=== PATIENT | female | born 1980 | race Caucasian/White ===

== ENCOUNTER → 2016-07-16 | Outpatient (CLI) | payer BC ==
[~2016-07-16] MED LIST: AMT50 PO; GABA1CAP5 PO; RXC5 PO
--- NOTE | 2016-07-16 17:06 | DIAGNOSTIC IMAGING REPORT ---
EXAMINATION: PELVIC ULTRASOUND (transabdominal and endovaginal scanning) CLINICAL HISTORY: FREQUENT/EXCESSIVE MENSTRUATION W/ IRREGULAR CYCLE COMPARISON STUDY: None FINDINGS: The uterus measured 8.6 x 5.3 x 4.1 cm.. The endometrial stripe measured 18 mm.. The right ovary measured 12 x 12 x 14 mm.. The left ovary measured 19 x 20 x 19 mm. There is a 1 cm follicle.. There is no ultrasonographic evidence of ovarian torsion. It should be noted that ovarian torsion can be present with normal Doppler ultrasonographic findings. There was no evidence of pathologic free pelvic fluid. IMPRESSION: 1. No myometrial masses identified 2. Thickened endometrium measuring 18 mm. Electronically signed by: [place] Yanes M.D. 07/16/2016 5:05 PM Dictated Date/Time: 07/16/2016 5:02 PM
== END | disposition home or self-care (01) ==
LOC: C.ULTR 16:05
PROVIDERS: ATTEND Family Medicine
DX: N92.1 Excessive and frequent menstruation with irregular cycle (principal)

== ENCOUNTER → 2017-06-24 | Outpatient (CLI) | payer BC ==
[~2017-06-24] MED LIST changes: +GABA-1220 PO; -GABA1CAP5 PO; +GLC/500 PO
[2017-06-24 10:05] LABS: HEMOGLOBIN A1C 6.8 % (4.5-5.6)
[2017-06-24 10:17] LABS: FOLLICLE STIMULAT HORMONE 6.24 IU/L; PROLACTIN 8.28 ng/mL
== END | disposition home or self-care (01) ==
LOC: C.LAB1850 08:13
PROVIDERS: ATTEND Obstetrics & Gynecology
DX: N91.5 Oligomenorrhea, unspecified (principal); E11.9 Type 2 diabetes mellitus without complications

== ENCOUNTER 2017-10-29 05:47 | Day surgery (SDC) | payer BC ==
[2017-10-15 13:17] VITALS: BMI 55.0
--- NOTE | 2017-10-15 13:45 | PAT Medication Instructions ---
Service Date Oct 15, 2017. Current Home Medication List Metformin Hcl (Glucophage), 500 MG PO BID Medication Instructions For Your Scheduled Surgery - Hold the following medications the morning of surgery: Metformin Hcl (Glucophage), 500 MG PO BID - Take the following medications as scheduled the night before surgery: Metformin Hcl (Glucophage), 500 MG PO BID If you have any questions please call us at [phone] or [phone] or [phone]
[2017-10-15 14:27] LABS: BASO % 0.1 %; BASO ABS # 0.01 K/uL (0-0.2); EOS % 1.8 %; EOS ABS # 0.13 K/uL (0-0.5); HEMATOCRIT 36.5 % (37-47); HEMOGLOBIN 11.8 g/dL (12.0-16.0); IG# 0.01 K/uL (0.00-0.02); LYMPH % 26.9 %; LYMPH ABS # 1.93 K/uL (1.2-3.4); MEAN CELL VOLUME 80.8 fL (80-100); MEAN CORPUSCULAR HEMOGLOBIN 26.1 pg (25-34); MEAN CORPUSCULAR HGB CONC 32.3 g/dl (32-36); MEAN PLATELET VOLUME 9.9 fL (7.4-10.4); MONO % 5.2 %; MONO ABS # 0.37 K/uL (0.11-0.59); NEUT % 65.9 %; NEUT ABS # 4.73 K/uL (1.4-6.5); PLATELET COUNT 251 K/uL (130-400); RED CELL DISTRIBUTION WIDTH CV 15.2 % (11.5-14.5); RED CELL DISTRIBUTION WIDTH SD 44.1 fL (36.4-46.3); WHITE BLOOD COUNT 7.18 K/uL (4.8-10.8)
[2017-10-15 15:34] LABS: CALCIUM 8.9 mg/dl (8.5-10.1); CREATININE 0.7 mg/dl (0.60-1.20); POTASSIUM 4.1 mmol/L (3.5-5.1)
[~2017-10-29] VITALS: Ht 162.6 cm; Wt 145.0 kg
[~2017-10-29 05:47] MED LIST changes: -AMT50 PO; -GABA-1220 PO; -RXC5 PO
[2017-10-29] MEDS ORDERED: LACTATED RINGER'S 1000ML 1,000 ML IV SCH ×2 (06:00→07:58)
[2017-10-29 06:21] VITALS: BP 144/72; PULSE 100; TEMP 36.9; O2SAT 97; Ht 162.6 cm; Wt 145.0 kg
--- NOTE | 2017-10-29 07:08 | History & Physical Bridge Note ---
H&P Re-Evaluation Bridge Note: I have examined the patient, reviewed the History & Physical and in the interval since the performance of the History & Physical I have noted the following changes of clinical significance: No changes noted
[2017-10-29] MEDS ORDERED: PROPOFOL IV EMULSION 10 MG/ML 20 ML VIAL ONE (07:11)
[2017-10-29] MEDS ORDERED: ONDANSETRON INJ 2 MG/ML 2 ML VIAL ONE (07:11)
[2017-10-29] MEDS ORDERED: LIDOCAINE HCL 2% 2 ML VIAL (20MG/ML) ONE (07:11)
[2017-10-29] MEDS ORDERED: DEXAMETHASONE SOD INJ 4 MG/ML VIAL ONE (07:11)
[2017-10-29] MEDS ORDERED: FENTANYL CITRATE INJ 50 MCG/1 ML 2 ML VIAL ONE (07:11)
[2017-10-29] MEDS ORDERED: MIDAZOLAM HCL 1 MG/ML 2ML VIAL ONE (07:11)
--- NOTE | 2017-10-29 07:58 | [facility] Post Operative Brief Note ---
Immediate Operative Summary Operative Date October 29, 2017. Pre-Operative Diagnosis Endometrial mass, thickened endometrium Post-Operative Diagnosis Endometrial mass, thickened endometrium Procedure(s) Performed Dilation and curettage, hysteroscopy, and polypectomy via myosure Surgeon Dr. Anna Quick MD Data Collector Surgeon(s) None Estimated Blood Loss 0ml Findings Consistent with Post-Op Diagnosis Fluids (cc crystalloids) 650cc, 0 deficit Specimens A. Polyp and endometrial currettings Drains None Anesthesia Type General Complication(s) none Disposition Disposition: Recovery Room / PACU
[2017-10-29] MEDS ORDERED: OXYCODONE/ACETAMINOPHEN 5-325 TAB PO PRN ×2 (08:00)
[2017-10-29] MEDS ORDERED: IBUPROFEN 200 MG TAB PO PRN (08:00)
[2017-10-29] MEDS ORDERED: MoRPHine SULFATE 4 MG/ML 1 ML CARP\\VIAL IV PRN (08:00)
[2017-10-29] MEDS ORDERED: ACETAMINOPHEN 650 MG SUPP PR PRN (08:00)
[2017-10-29] MEDS ORDERED: IBUPROFEN 600 MG TAB PO PRN (08:00)
[2017-10-29] MEDS ORDERED: MoRPHine SULFATE 2 MG/ML CARP IV PRN ×2 (08:00)
[2017-10-29] MEDS ORDERED: KETOROLAC TROMETHAMINE 30 MG/ML VIAL IV. PRN ×2 (08:00)
[2017-10-29] MEDS ORDERED: ACETAMINOPHEN 325 MG TAB PO PRN (08:00)
--- NOTE | 2017-10-29 08:00 | Discharge Instructions ---
Discharge Instructions Date of Service October 29, 2017. Visit Reason for Visit: Thickened Endometrium, Endometrial Mass Discharge Discharge Diagnosis / Problem: s/p D&C/hysteroscopy, removal of polyp Discharge Goals Goal(s): Specific goals Activity Recommendations Activity Limitations: per Instructions/Follow-up section Anesthesia . Post Anesthesia Instructions: If you have had General Anesthesia or IV Sedation: * Do not drive today. * Resume driving when surgeon permits. * Do not make important decisions or sign legal documents today. * Call surgeon for: 1. Temperature elevations greater than 101 degrees F. 2. Uncontrollable pain. 3. Excessive bleeding. 4. Persistent nausea and vomiting. 5. Medication intolerance (nausea, vomiting or rash). * For nausea and vomiting use only clear liquids such as: tea, soda, bouillon until nausea subsides, then gradually increase diet as tolerated. * If you have any concerns or questions, call your surgeon's office. If physician is unavailable and it is an emergency, call 911 or go to the nearest emergency room. . Instructions / Follow-Up Instructions / Follow-Up ACTIVITY RECOMMENDATIONS: * Avoid tampons, douching, hot tubs, pools, and intercourse until bleeding has stopped. * May shower as usual. * No strenuous activity for 24-48 hours. After 24-48 hours, you may do anything you feel like doing (driving and sports are okay). SPECIAL CARE INSTRUCTIONS: Special Diet: * Mild nausea may occur in the immediate post-operative period. * Take clear liquids such as tea, cola or bouillon until all nausea has subsided; you may then resume your normal diet. Special Care: * Light bleeding and vaginal spotting can last from a few days to 3-4 weeks. Call your doctor if bleeding becomes heavier than the heaviest part of your period. * Check your temperature twice a day for one week. If it goes above 100.4 degrees Fahrenheit (38.0 Celsius), notify your doctor. * Call your doctor's office for an appointment for 6 weeks after your surgery. FOLLOW-UP VISIT: Call your doctor's office for an appointment for 6 weeks after your surgery. Diet Recommendations Recommended Home Diet: no limitations, resume previous diet Procedures Procedures Performed: Dilation and curettage, hysteroscopy, and polypectomy via myosure Pending Studies Studies pending at discharge: no Medical Emergencies . Who to Call and When: Medical Emergencies: If at any time you feel your situation is an emergency, please call 911 immediately. . Non-Emergent Contact Non-Emergency issues call your: [employer] Commissioner . . "Provider Documentation" section prepared by Anna Quick. .
[2017-10-29] MEDS ORDERED: LARYING-O-JET KIT (LTA) ONE (08:02)
[2017-10-29] MEDS ORDERED: NEOSTIGMINE METHYLSULFATE 5 MG/5 ML SYR ONE (08:02)
[2017-10-29] MEDS ORDERED: GLYCOPYRROLATE INJ 0.2 MG/ML VIAL ONE (08:02)
[2017-10-29] MEDS ORDERED: ROCURONIUM BROMIDE 10 MG/ML 5 ML VIAL ONE (08:02)
[2017-10-29] MEDS ORDERED: ATROPINE SULFATE 0.1 MG/ML 5ML SYR IV PRN (08:45)
[2017-10-29] MEDS ORDERED: EpHEDrine SULFATE INJ 50 MG/ML AMP IV PRN (08:45)
[2017-10-29] MEDS ORDERED: MEPERIDINE HCL 25 MG/ML CARP IV PRN (08:45)
[2017-10-29] MEDS ORDERED: HYDROmorphone INJ 1 MG/ML SYR IV PRN (08:45)
[2017-10-29] MEDS ORDERED: FENTANYL CITRATE INJ 50 MCG/1 ML 2 ML VIAL IV PRN (08:45)
[2017-10-29] MEDS ORDERED: ONDANSETRON INJ 2 MG/ML 2 ML VIAL IV PRN (08:45)
[2017-10-29] MEDS ORDERED: LABETALOL HCL IV 5 MG/ML 20ML IV PRN (08:45)
--- NOTE | 2017-10-29 08:52 | OPERATIVE REPORT ---
DATE OF OPERATION: 10/29/2017 PREOPERATIVE DIAGNOSES: 1. Thickened endometrium. 2. Suspected endometrial mass. POSTOPERATIVE DIAGNOSES: 1. Thickened endometrium. 2. Endometrial mass. PROCEDURE: D and C, hysteroscopy with polypectomy via MyoSure. SURGEON: Anna Quick MD ANESTHESIA: General per endotracheal tube. ESTIMATED BLOOD LOSS: None. FLUIDS: 650 mL of IV fluid with a 0 mL deficit on hysteroscopy. INDICATIONS: The patient is a 37-year-old G0 who was undergoing an infertility workup and found to have thickened endometrium and an SIS consistent with possible mass. FINDINGS: Uterus sounded to 8-9 cm. The endometrium was normal in appearance except for 1-2 endometrial polyps emanating from the fundus and posterior wall of the uterus. Both tubal ostia were visualized and found to be normal. COMPLICATIONS: None. DRAINS: None. DISPOSITION: To recovery room in stable condition. PROCEDURE IN DETAIL: The patient was taken the operating room where she was identified verbally and by bracelet. She was placed in dorsal spine position where general anesthesia was induced without difficulty. She was placed in dorsal lithotomy position in [facility]-cane stirrups and prepped and draped in normal sterile fashion. Timeout was held identifying the correct patient, procedure, positioning, allergies, and she did not need preoperative antibiotics. The bladder was drained of no urine and an exam under anesthesia revealed a midline uterus, normal palpating cervix, the rest of the exam is limited by body habitus. A weighted speculum was placed in posterior vagina. The anterior lip of the cervix was grasped with an Allis. The uterus was sounded to 8-9 cm and dilated to a #25 Yue dilator. The MyoSure scope was introduced into the uterus with the above-noted findings. The MyoSure Reach was then placed through the MyoSure scope and the polypoid tissue was removed without difficulty. The MyoSure scope was then removed and curettage was done in 365 degrees and the procedure was thus terminated. All instruments removed from the vagina and hemostasis was noted to be excellent. All sponge, lap, and needle counts were correct x2. The patient tolerated the procedure well and was taken to the recovery room in stable condition. I attest to the content of the Intraoperative Record and any orders documented therein. Any exception s are noted below.
[2017-10-29 09:05] VITALS: BP 116/73; PULSE 62; TEMP 36.4; O2SAT 96
[2017-10-29 09:35] VITALS: BP 127/65; PULSE 62; TEMP 36.5; O2SAT 97
[2017-10-29 10:05] VITALS: BP 134/61; PULSE 71; TEMP 36.5; O2SAT 90; O2SAT 92
--- NOTE | 2017-10-29 10:34 | Anesthesiology Progress Note ---
Anesthesia Post Op Note Date & Time October 29, 2017 at 10:34 Vital Signs Pain Intensity: 0 Vital Signs Past 12 Hours Date Time Temp Pulse Resp B/P (MAP) Pulse Ox O2 Delivery O2 Flow Rate FiO2 10/29/17 09:35 36.5 62 18 127/65 97 Nasal Cannula 2 10/29/17 09:05 36.4 62 18 116/73 96 Nasal Cannula 2 10/29/17 08:50 36.3 67 16 135/75 96 Nasal Cannula 2 10/29/17 08:40 74 16 135/80 98 Nasal Cannula 2 10/29/17 08:30 74 16 142/83 99 Oxymask 10 10/29/17 08:20 70 18 162/92 99 Oxymask 10 10/29/17 08:12 36.6 80 18 147/107 99 Oxymask 10 10/29/17 06:21 36.9 100 16 144/72 (96) 97 Room Air Notes Mental Status: alert / awake / arousable, participated in evaluation Pt Amnestic to Procedure: Yes Nausea / Vomiting: adequately controlled Pain: adequately controlled Airway Patency, RR, SpO2: stable & adequate BP & HR: stable & adequate Hydration State: stable & adequate Anesthetic Complications: no major complications apparent
== END 2017-10-29 10:25 | disposition home or self-care (01) ==
LOC: C.ACU 05:47
PROVIDERS: ATTEND Obstetrics & Gynecology
DX: N84.0 Polyp of corpus uteri (principal); R93.8 Abnormal findings on diagnostic imaging of other specified body structures; E11.40 Type 2 diabetes mellitus with diabetic neuropathy, unspecified; E66.01 Morbid (severe) obesity due to excess calories; Z68.43 Body mass index [BMI] 50.0-59.9, adult; Z88.0 Allergy status to penicillin; Z88.1 Allergy status to other antibiotic agents; Z82.49 Family history of ischemic heart disease and other diseases of the circulatory system; Z83.3 Family history of diabetes mellitus

== ENCOUNTER 2019-04-16 18:10 | Observation (INO) ==
[2019-04-16] MEDS ORDERED: ACETAMINOPHEN 500 MG TAB PO STA (18:25)
[2019-04-16] MEDS ORDERED: SODIUM CHLORIDE 0.9% 1000ML 1,000 ML IV ONE (18:25)
[2019-04-16] MEDS ORDERED: CLINDAMYCIN 900 MG in DEXTROSE 5% 50 ML IV ONE (18:25)
[2019-04-16 18:59] LABS: Basophils # (auto) 0.01 K/uL (0-0.2); Basophils % (auto) 0.1 %; Eosinophils # (auto) 0.08 K/uL (0-0.5); Eosinophils % (auto) 0.6 %; Hematocrit (blood only) 38.4 % (37-47); Hemoglobin 12.9 g/dL (12.0-16.0); Immature Granulocytes # (auto) 0.03 K/uL (0.00-0.02); Immature Granulocytes % (auto) 0.2 %; Lymphocytes % (auto) 4.8 %; Mean Corpuscular Hemoglobin 27.7 pg (25-34); Mean Corpuscular Hgb Conc 33.6 g/dL (32-36); Mean Corpuscular Volume 82.4 fL (80-100); Mean Platelet Volume 9.7 fL (7.4-10.4); Monocytes # (auto) 0.51 K/uL (0.11-0.59); Monocytes % (auto) 3.5 %; Neutrophils # (auto) 13.17 K/uL (1.4-6.5); Neutrophils % (auto) 90.8 %; Platelet Count 223 K/uL (130-400); RDW Coefficient of Variation 14.9 % (11.5-14.5); RDW Standard Deviation 44.5 fL (36.4-46.3); Red Blood Count 4.66 M/uL (4.2-5.4)
[2019-04-16 19:09] LABS: Partial Thromboplastin Ratio 0.9; Partial Thromboplastin Time 25.6 Seconds (21.0-31.0); Prothrombin Time 10.3 Seconds (9.0-12.0)
[2019-04-16] MEDS ORDERED: VANCOMYCIN HCL MG in SODIUM CHLORIDE 0.9% 500 ML IV ONE (19:09)
[2019-04-16] MEDS ORDERED: VANCOMYCIN HCL 2,750 MG in SODIUM CHLORIDE 0.9% 500 ML IV ONE (19:09)
[2019-04-16] MEDS ORDERED: VANCOMYCIN CONSULT ACTIVE PRN ×2 (19:09→20:30)
[2019-04-16] MEDS ORDERED: LACTATED RINGER'S 1,000 ML IV ONE (19:09)
[2019-04-16 19:18] LABS: Albumin Level 4.1 gm/dl (3.4-5.0); BUN Creatinine Ratio 12.3 (10-20); Calcium 9.2 mg/dl (8.5-10.1); Creatinine Clr Calc Pharmacy 125.7 ml/min; Est GFR (African American) 97.3; Est GFR (Non-African American) 83.9; Potassium 3.7 mmol/L (3.5-5.1)
[2019-04-16 19:20] LABS: Albumin Globulin Ratio 1.1 (0.9-2); Bilirubin,Total 0.6 mg/dl (0.2-1); Globulin 3.8 gm/dl (2.5-4.0); Total Protein 7.9 gm/dl (6.4-8.2)
--- NOTE | 2019-04-16 19:21 | XRay Report ---
XR chest 1V portable CLINICAL HISTORY: Sepsis dyspnea COMPARISON STUDY: 08/20/2014 FINDINGS: The bones soft tissues and hemidiaphragms are normal. The cardiomediastinal silhouette is n ormal. The lungs are clear. The pulmonary vasculature is normal. IMPRESSION: Negative chest. The above report was generated using voice recognition software. It may contain grammatical, syntax or spelling errors. Electronically signed by: Chris Todd M.D. 04/16/2019 7:19 PM
--- NOTE | 2019-04-16 19:22 | XRay Report ---
XR tibia fibula LT 2V CLINICAL HISTORY: redness, ?infection pain. Edema. COMPARISON: None. DISCUSSION: Generalized soft tissue edema. Cortical margins are intact. No abnormal periosteal reacti on. No evidence for fracture or dislocation. IMPRESSION: Generalized soft tissue edema. No acute bony abnormality. The above report was generated using voice recognition software. It may contain grammatical, syntax or spelling errors. Electronically signed by: Chris Todd M.D. 04/16/2019 7:21 PM
--- NOTE | 2019-04-16 20:14 | History & Physical Report ---
Date of Service April 16, 2019 Assessment & Plan (1) Left leg cellulitis: Patient with acute onset redness/swelling/pain of her left lower extremity. Also with fevers/chills/nausea/vomiting. Presently 3/4 SIRS criteria with fever/tachycardia/leukocytosis. Mildly elevated POC lactate at 2.37. Patient is nontoxic in appearance. Upon exam of the leg no real concern for ascending/deeper soft tissue infection. Mild concern for DVT. Patient also with significant tachycardia and mildly low oxygen saturations with no pre- existing lung disease. -Follow blood cultures sent by ED -Vancomycin -Clindamycin 900 mg IV 3 times daily -Probiotic use daily -Tylenol as needed for pain and fever -Chris area of cellulitis daily to monitor for progression -IV fluidsLR at 125 mL/h x 2 L -We will check d-dimer and left lower extremity ultrasound for possible DVT Present on Admission?: Yes (2) Elevated blood pressure reading without diagnosis of hypertension: Patient with elevated blood pressure upon arrival, 156/78. She comments that while at [facility] her blood pressure was over 200. She follows routinely with her PCP and has never been given the diagnosis of hypertension. She does appear to be mildly anxious, pain and IV fluids may also be contributing to elevated blood pressure. -Continue to monitor BP during her stay -Will not initiate antihypertensive agents at this time Present on Admission?: Yes (3) Tachycardia: Patient with elevated heart rate 129 bpm. Regular, narrow complex on telemetry. Suspect sinus tachycardia in setting of acute infection -Check EKG -Telemetry monitoring -IV fluids as above -Pain and fever control F/E/N - LR at 125 mL/h x 2 L, monitor electrolytes and replete as needed. Heart healthy diet as tolerated Prophylaxispatient is low risk for DVT, Doppler as above. Codefull Dispositionobservation to medical floor telemetry monitoring Present on Admission?: Yes History of Present Illness Chief Complaint: Left lower extremity pain, redness, edema Primary Care Provider: Ana Nunez PA-C Anjelica Tafoya is a 39-year-old male with no significant past medical or surgical history presenting with acute edema, redness, pain in her left lower extremity. Also with fevers, chills and malaise. Nausea and nonbloody/nonbilious vomiting. Symptoms began today at 1400. She was seen at [facility] prior to the ER and was sent here. She denies trauma to the area. Has had cellulitis of the left lower extremity in the past, most recently in 2013, unprovoked. No history of DVT or PE. 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 No recent travel. On arrival she is found to be febrile at 38.9. Regular tachycardia 129 bpm. Blood pressure elevated at 156/78. She comments that her blood pressure was over [facility] at [facility]. Blood pressure has always been within the normal range during visits with her PCP. Respiratory rate of 20 saturating 92% on room air, 96% on 2 L. She comments that at [facility] her respiratory rate was as low as 89% on room air. Presently her pain is well controlled. Chills have resolved. No additional complaints at this time. Specifically, no chest pain, palpitations, shortness of breath, cough, wheeze, pleuritic pain. No abdominal pain, diarrhea, constipation. ER course: Acetaminophen 1000 mg p.o., clindamycin 900 mg IV, vancomycin 2750 mg IV, LR x1 L, normal saline x1 L Allergies Allergy/AdvReac Type Severity Reaction Status Date / Time Penicillins Allergy Severe THROAT Verified 04/16/19 18:45 SWELLS sulfamethoxazole Allergy Intermediate hives Verified 04/16/19 18:45 trimethoprim Allergy Intermediate hives Verified 04/16/19 18:45 Bactrim Allergy Unknown hives Verified 10/15/17 13:17 Home Medications Home Medications Medication Instructions Recorded Confirmed Type ibuprofen [Advil] 400 - 600 mg PO DIRECTED PRN 04/16/19 04/16/19 History metformin 500 mg PO QAM 04/16/19 04/16/19 History Past Med/Surg History Medical History Cellulitis Surgical History History of back surgery Family History Other Cancer Diabetes Hypertension Social History Preferred Language: [place]serratian Communication Ability: Effective marital status: Current Living Situation: Spouse Feels Safe at Home: Yes Smoking Status: Never smoker Hx Alcohol Use: No Hx Substance Use: No Review of Systems Review of Systems: All systems reviewed & are unremarkable except as noted in HPI & below Physical Exam Physical Exam: General: patient resting comfortably, NAD, non-toxic in appearance, AA&O x 4 Skin: warm, dry, intact HEENT: NC/AT, PERRL, EOMI, anicteric sclera, conjunctiva without injection, external ear normal to inspection and nontender, nares patent, moist mucus membranes, dentition intact, no oropharyngeal lesions, neck supple, trachea mid line, no LAD, no thyromegaly, no JVD Heart: +S1/S2, regular, tachycardic, no m/r/g Lungs: equal air entry bilaterally, no rales/rhonchi/wheezes Abd: +BS, soft, NT/ND, no masses/organomegaly/ascites Ext: warm, 2+ pulses in UE/LE bilaterally, no clubbing/cyanosis, warmth/redness/swelling of left lower extremity from the knee down, few scattered fluid-filled vesicles on lateral aspect of the leg. Skin is intact. Redness well demarcated, marked with a pen and dated. No posterior calf tenderness, no palpable cord, negative Homans sign. No crepitus/bulla/lymphangitic streaking Neuro: nonfocal, patient AA&O x 4, speech intact, no facial droop, moving all extremities on command with equal strength 5/5 Results & Data Vital Signs (Past 12 Hours) Vital Signs Temp Pulse Pulse Resp BP BP Pulse Ox 04/16/19 19:52 37.2 C 115 H 20 130/65 98 04/16/19 19:07 92 04/16/19 19:03 129 H 20 156/78 H 92 04/16/19 18:15 38.4 C H 137 H 20 164/81 H 94 Laboratory Results Lab Results 04/16/19 04/16/19 04/16/19 Range/Units 18:41 18:41 18:41 WBC 14.50 H (4.8-10.8) K/uL RBC 4.66 (4.2-5.4) M/uL Hgb 12.9 (12.0-16.0) g/dL Hct 38.4 (37-47) % MCV 82.4 (80-100) fL MCH 27.7 (25-34) pg MCHC 33.6 (32-36) g/dL RDW Std Deviation 44.5 (36.4-46.3) fL RDW Coeff of Deepak 14.9 H (11.5-14.5) % Plt Count 223 (130-400) K/uL MPV 9.7 (7.4-10.4) fL Immature Gran % (Auto) 0.2 % Neut % (Auto) 90.8 % Lymph % (Auto) 4.8 % Gilchrist % (Auto) 3.5 % Eos % (Auto) 0.6 % Baso % (Auto) 0.1 % Immature Gran # (Auto) 0.03 H (0.00-0.02) K/uL Neut # (Auto) 13.17 H (1.4-6.5) K/uL Lymph # (Auto) 0.70 L (1.2-3.4) K/uL Gilchrist # (Auto) 0.51 (0.11-0.59) K/uL Eos # (Auto) 0.08 (0-0.5) K/uL Baso # (Auto) 0.01 (0-0.2) K/uL PT 10.3 (9.0-12.0) Seconds INR 1.0 (0.9-1.1) APTT 25.6 (21.0-31.0) Seconds PTT Ratio 0.9 Sodium 137 (136-145) mmol/L Potassium 3.7 (3.5-5.1) mmol/L Chloride 102 (98-107) mmol/L Carbon Dioxide 30 (21-32) mmol/L Anion Gap 6.0 (3-11) BUN 11 (7-18) mg/dl Creatinine 0.88 (0.6-1.2) mg/dl Est Cr Clr Drug Dosing 125.7 ml/min Est GFR ( Amer) 97.3 Est GFR (Non-Af Amer) 83.9 BUN/Creatinine Ratio 12.3 (10-20) Glucose 150 H (70-99) mg/dl POC Lactic Acid Andi (0.90-1.70) mmol/L Calcium 9.2 (8.5-10.1) mg/dl Total Bilirubin 0.6 (0.2-1) mg/dl AST 20 (15-37) U/L ALT 31 (12-78) U/L Alkaline Phosphatase 80 (45-117) U/L Total Protein 7.9 (6.4-8.2) gm/dl Albumin 4.1 (3.4-5.0) gm/dl Globulin 3.8 (2.5-4.0) gm/dl Albumin/Globulin Ratio 1.1 (0.9-2) Lipase 102 (73-393) U/L 04/16/19 Range/Units 18:49 WBC (4.8-10.8) K/uL RBC (4.2-5.4) M/uL Hgb (12.0-16.0) g/dL Hct (37-47) % MCV (80-100) fL MCH (25-34) pg MCHC (32-36) g/dL RDW Std Deviation (36.4-46.3) fL RDW Coeff of Deepak (11.5-14.5) % Plt Count (130-400) K/uL MPV (7.4-10.4) fL Immature Gran % (Auto) % Neut % (Auto) % Lymph % (Auto) % Gilchrist % (Auto) % Eos % (Auto) % Baso % (Auto) % Immature Gran # (Auto) (0.00-0.02) K/uL Neut # (Auto) (1.4-6.5) K/uL Lymph # (Auto) (1.2-3.4) K/uL Gilchrist # (Auto) (0.11-0.59) K/uL Eos # (Auto) (0-0.5) K/uL Baso # (Auto) (0-0.2) K/uL PT (9.0-12.0) Seconds INR (0.9-1.1) APTT (21.0-31.0) Seconds PTT Ratio Sodium (136-145) mmol/L Potassium (3.5-5.1) mmol/L Chloride (98-107) mmol/L Carbon Dioxide (21-32) mmol/L Anion Gap (3-11) BUN (7-18) mg/dl Creatinine (0.6-1.2) mg/dl Est Cr Clr Drug Dosing ml/min Est GFR ( Amer) Est GFR (Non-Af Amer) BUN/Creatinine Ratio (10-20) Glucose (70-99) mg/dl POC Lactic Acid Andi 2.37 H (0.90-1.70) mmol/L Calcium (8.5-10.1) mg/dl Total Bilirubin (0.2-1) mg/dl AST (15-37) U/L ALT (12-78) U/L Alkaline Phosphatase (45-117) U/L Total Protein (6.4-8.2) gm/dl Albumin (3.4-5.0) gm/dl Globulin (2.5-4.0) gm/dl Albumin/Globulin Ratio (0.9-2) Lipase (73-393) U/L Diagnostic Findings XR tibia fibula LT 2V CLINICAL HISTORY: redness, ?infection pain. Edema. COMPARISON: None. DISCUSSION: Generalized soft tissue edema. Cortical margins are intact. No abnormal periosteal reaction. No evidence for fracture or dislocation. IMPRESSION: Generalized soft tissue edema. No acute bony abnormality. The above report was generated using voice recognition software. It may contain grammatical, syntax or spelling errors. Electronically signed by: Chris Todd M.D. 04/16/2019 7:21 PM Dictated: 04/16/191919 Transcribed: 04/16/191919 XR chest 1V portable CLINICAL HISTORY: Sepsis dyspnea COMPARISON STUDY: 08/20/2014 FINDINGS: The bones soft tissues and hemidiaphragms are normal. The cardiomediastinal silhouette is normal. The lungs are clear. The pulmonary vasculature is normal. IMPRESSION: Negative chest. The above report was generated using voice recognition software. It may contain grammatical, syntax or spelling errors. Electronically signed by: Chris Todd M.D. 04/16/2019 7:19 PM Dictated: 04/16/191918 Transcribed: 04/16/191918 ECG Additional Comments: Ordered to further assess tachycardia Code Status & VTE Plan Code Status Full code VTE Prophylaxis Plan VTE Prophylaxis will be ordered: No PG Care Time/CCT Total # of Minutes Spent Total Time Spent with Patient: Total time spent is greater than 50% in coordination of care (as documented) at patient's floor/unit and/or counseling patient:
[2019-04-16] MEDS ORDERED: VANCOMYCIN HCL 1,000 MG in SODIUM CHLORIDE 0.9% 250 ML IV SCH (20:30)
[2019-04-16] MEDS ORDERED: ONDANSETRON INJ 2 MG/ML 2 ML VIAL IV PRN (20:30)
--- NOTE | 2019-04-16 20:44 | Emergency Department Note ---
Entered by Rafia Chavez acting as a scribe for Josiah Martino M.D. History of Present Illness General Chief complaint: Infection Stated complaint: CELLULITIS IN LOWER L LEG, FEVER, HTN, VOMITING Time Seen by Provider: 04/16/19 18:19 History of Present Illness Provider complaint: infection Onset (ago): hour(s) 4 Location: lower extremity and left Radiation: non-radiation Severity: similar to prior episodes (cellulitis a few years ago) Pain Consistency: + other (episode) Maximum Pain Intensity: 1 Associated symptoms: + denies other symptoms (abdominal pain, recent travel, fatigue), + fever/chills, + nausea/vomiting and + other (left lef mid ivey is warm, ) The patient is a 39 year old female who presents to the ED with complaints of an episode of an infection that started 4 hours ago. The patient states that her leg feels admitting representative the middle of her left ivey. The patient states that the infection is non-radiating. The patient notes that she also has a fever, chills and vomiting. The patient states that she had similar episodes of these symptoms and was diagnosed with cellulitis a few years ago. The patient denies abdominal pain, fatigue and recent travel. Home Medications Home Medications Medication Instructions Recorded Confirmed Type ibuprofen [Advil] 400 - 600 mg PO DIRECTED PRN 04/16/19 04/16/19 History metformin 500 mg PO QAM 04/16/19 04/16/19 History Allergies Allergy/AdvReac Type Severity Reaction Status Date / Time Penicillins Allergy Severe THROAT Verified 04/16/19 18:45 SWELLS sulfamethoxazole Allergy Intermediate hives Verified 04/16/19 18:45 trimethoprim Allergy Intermediate hives Verified 04/16/19 18:45 Bactrim Allergy Unknown hives Verified 10/15/17 13:17 Past Med/Surg History Medical History Cellulitis Surgical History History of back surgery Family History Other Cancer Diabetes Hypertension Social History Preferred Language: Portuguese Communication Ability: Effective marital status: Current Living Situation: Spouse Feels Safe at Home: Yes Smoking Status: Never smoker Hx Alcohol Use: No Hx Substance Use: No Review of Systems See HPI for pertinent positives & negatives. and A total of 10 systems reviewed and were otherwise negative Physical Exam Vital Signs Vital Signs - 24 hr 04/16/19 18:15 04/16/19 19:03 04/16/19 19:07 Temperature 38.4 C H Temperature Source Oral Sepsis Recent Fever Within 48 Hours Yes Sepsis New/Unexplained Change in Mental Status No Sepsis Action Taken by Nursing No Action Required Pulse Rate 137 H Pulse Rate [Right Finger] 129 H Pulse Rhythm Regular Pulse Rhythm [Right Finger] Regular Pulse Strength Normal Pulse Strength [Right Finger] Normal Respiratory Rate 20 20 Respiratory Effort / Characteristics Non-Labored Spontaneous Non-Labored Spontaneous Respiratory Depth Normal Normal Respiratory Pattern Regular Blood Pressure 164/81 H Blood Pressure [Right Arm] 156/78 H Blood Pressure Mean 108 Blood Pressure Mean [Right Arm] 104 Blood Pressure Position Sitting Pulse Oximetry 94 92 92 Oxygen Delivery Method Room Air Room Air Room Air GENERAL: Awake, alert, well-appearing, in no distress HENT: Normocephalic, atraumatic. EYES: Normal conjunctiva. Sclera non-icteric. NECK: Supple. No nuchal rigidity. RESPIRATORY: Clear to auscultation. Normal respiratory effort. CARDIAC: Tachycardic rate. Normal rhythm. Extremities warm and well perfused. GI: Soft, non-distended. No tenderness to palpation. No rebound or guarding. No masses. RECTAL: Deferred. MUSCULOSKELETAL: Atraumatic. Chest examination reveals no tenderness. LOWER EXTREMITIES: Left lower extremity slightly swollen with mid ivey mild tenderness and erythema, no crepitus. NVI left foot. NEURO: Normal sensorium. No sensory or motor deficits noted. No facial droop. SKIN: Warm and dry. No rash or jaundice noted. Course 1818: Past medical records reviewed. The patient was evaluated in room C12B. A complete history and physical exam was performed. 8: I updated the patient on the test results and plan for admission. 1927: I discussed the patient's case with Dr. Davies [facility] Hospitalist. She will evaluate the patient for further management. Consultations Consultation #1: I discussed the patient's case with Dr. Davies [facility] Hospitalist. She will evaluate the patient for further management. Time: 19:28 Administered Medications Vancomycin HCl 2,750 mg/ (Sodium Chloride) 555 mls @ 200 mls/hr IV NOW ONE Stop: 04/16/19 21:55 Last Admin: 04/16/19 19:30 Dose: 200 mls/hr Documented by: [id number] Discontinued Medications Acetaminophen (Tylenol) 1,000 mg PO NOW STA Stop: 04/16/19 18:26 Last Admin: 04/16/19 18:53 Dose: 1,000 mg Documented by: [id number] Sodium Chloride (Nss 1000ml) 1,000 mls @ 999 mls/hr IV .Q1H1M ONE Stop: 04/16/19 19:25 Last Admin: 04/16/19 19:01 Dose: 999 mls/hr Documented by: [id number] Clindamycin Phosphate 900 mg/ (Dextrose) 56 mls @ 112 mls/hr IV ONE ONE Stop: 04/16/19 18:54 Last Infusion: 04/16/19 19:32 Dose: 0 mls/hr Documented by: [id number] Admin: 04/16/19 19:01 Dose: 112 mls/hr Documented by: [id number] Lactated Ringer's (Lr) 1,000 mls @ 999 mls/hr IV .Q1H1M ONE Stop: 04/16/19 20:09 Last Admin: 04/16/19 19:50 Dose: 999 mls/hr Documented by: [id number] Medical Decision Making Differential Diagnosis Differential diagnosis: Etiologies such as viral syndrome, otitis, pharyngitis, pneumonia, influenza, meningitis, urinary tract infection, septic arthritis, soft tissue infectious process, intra-abdominal process, sepsis, bacteremia, as well as others were entertained. Medical Records Attestation: I reviewed the patient's medical records. Home Medications Current Medication List: was personally reviewed by me Laboratory Data Attestation: I reviewed the patient's lab results. Result diagrams: 04/16/19 18:41 04/16/19 18:41 Lab Results 04/16/19 04/16/19 04/16/19 Range/Units 18:41 18:41 18:41 WBC 14.50 H (4.8-10.8) K/uL RBC 4.66 (4.2-5.4) M/uL Hgb 12.9 (12.0-16.0) g/dL Hct 38.4 (37-47) % MCV 82.4 (80-100) fL MCH 27.7 (25-34) pg MCHC 33.6 (32-36) g/dL RDW Std Deviation 44.5 (36.4-46.3) fL RDW Coeff of Deepak 14.9 H (11.5-14.5) % Plt Count 223 (130-400) K/uL MPV 9.7 (7.4-10.4) fL Immature Gran % (Auto) 0.2 % Neut % (Auto) 90.8 % Lymph % (Auto) 4.8 % Gibson % (Auto) 3.5 % Eos % (Auto) 0.6 % Baso % (Auto) 0.1 % Immature Gran # (Auto) 0.03 H (0.00-0.02) K/uL Neut # (Auto) 13.17 H (1.4-6.5) K/uL Lymph # (Auto) 0.70 L (1.2-3.4) K/uL Gibson # (Auto) 0.51 (0.11-0.59) K/uL Eos # (Auto) 0.08 (0-0.5) K/uL Baso # (Auto) 0.01 (0-0.2) K/uL PT 10.3 (9.0-12.0) Seconds INR 1.0 (0.9-1.1) APTT 25.6 (21.0-31.0) Seconds PTT Ratio 0.9 Sodium 137 (136-145) mmol/L Potassium 3.7 (3.5-5.1) mmol/L Chloride 102 (98-107) mmol/L Carbon Dioxide 30 (21-32) mmol/L Anion Gap 6.0 (3-11) BUN 11 (7-18) mg/dl Creatinine 0.88 (0.6-1.2) mg/dl Est Cr Clr Drug Dosing 125.7 ml/min Est GFR ( Amer) 97.3 Est GFR (Non-Af Amer) 83.9 BUN/Creatinine Ratio 12.3 (10-20) Glucose 150 H (70-99) mg/dl POC Lactic Acid Andi (0.90-1.70) mmol/L Calcium 9.2 (8.5-10.1) mg/dl Total Bilirubin 0.6 (0.2-1) mg/dl AST 20 (15-37) U/L ALT 31 (12-78) U/L Alkaline Phosphatase 80 (45-117) U/L Total Protein 7.9 (6.4-8.2) gm/dl Albumin 4.1 (3.4-5.0) gm/dl Globulin 3.8 (2.5-4.0) gm/dl Albumin/Globulin Ratio 1.1 (0.9-2) Lipase 102 (73-393) U/L 04/16/19 Range/Units 18:49 WBC (4.8-10.8) K/uL RBC (4.2-5.4) M/uL Hgb (12.0-16.0) g/dL Hct (37-47) % MCV (80-100) fL MCH (25-34) pg MCHC (32-36) g/dL RDW Std Deviation (36.4-46.3) fL RDW Coeff of Deepak (11.5-14.5) % Plt Count (130-400) K/uL MPV (7.4-10.4) fL Immature Gran % (Auto) % Neut % (Auto) % Lymph % (Auto) % Gibson % (Auto) % Eos % (Auto) % Baso % (Auto) % Immature Gran # (Auto) (0.00-0.02) K/uL Neut # (Auto) (1.4-6.5) K/uL Lymph # (Auto) (1.2-3.4) K/uL Gibson # (Auto) (0.11-0.59) K/uL Eos # (Auto) (0-0.5) K/uL Baso # (Auto) (0-0.2) K/uL PT (9.0-12.0) Seconds INR (0.9-1.1) APTT (21.0-31.0) Seconds PTT Ratio Sodium (136-145) mmol/L Potassium (3.5-5.1) mmol/L Chloride (98-107) mmol/L Carbon Dioxide (21-32) mmol/L Anion Gap (3-11) BUN (7-18) mg/dl Creatinine (0.6-1.2) mg/dl Est Cr Clr Drug Dosing ml/min Est GFR ( Amer) Est GFR (Non-Af Amer) BUN/Creatinine Ratio (10-20) Glucose (70-99) mg/dl POC Lactic Acid Andi 2.37 H (0.90-1.70) mmol/L Calcium (8.5-10.1) mg/dl Total Bilirubin (0.2-1) mg/dl AST (15-37) U/L ALT (12-78) U/L Alkaline Phosphatase (45-117) U/L Total Protein (6.4-8.2) gm/dl Albumin (3.4-5.0) gm/dl Globulin (2.5-4.0) gm/dl Albumin/Globulin Ratio (0.9-2) Lipase (73-393) U/L Imaging Data Radiologist's Impression: Radiology results as stated below per my review and the radiologist's interpretation: XR chest 1V portable CLINICAL HISTORY: Sepsis dyspnea COMPARISON STUDY: 08/20/2014 FINDINGS: The bones soft tissues and hemidiaphragms are normal. The cardiomediastinal silhouette is normal. The lungs are clear. The pulmonary vasculature is normal. IMPRESSION: Negative chest. The above report was generated using voice recognition software. It may contain grammatical, syntax or spelling errors. Electronically signed by: Chris Todd M.D. 04/16/2019 7:19 PM XR tibia fibula LT 2V CLINICAL HISTORY: redness, ?infection pain. Edema. COMPARISON: None. DISCUSSION: Generalized soft tissue edema. Cortical margins are intact. No abnormal periosteal reaction. No evidence for fracture or dislocation. IMPRESSION: Generalized soft tissue edema. No acute bony abnormality. The above report was generated using voice recognition software. It may contain grammatical, syntax or spelling errors. Electronically signed by: Chris Todd M.D. 04/16/2019 7:21 PM Blood Pressure Blood Pressure Findings: Elevated blood pressure Blood Pressure Disposition: further management by hospitalist OPAL Narrative Patient is a 39-year-old female with a history significant for sepsis in the left lower extremity cellulitis presenting with onset of left ivey pain and erythema this afternoon. States initially went to [facility] and referred here. Globin Motrin for mild headache earlier today and states he has been a bit nauseous threw up earlier and now feels better in that regard. Denies any abdominal pain. No significant new trauma or travel reported no new cuts to the left lower extremity. Again several years ago had a significant cellulitis in this leg. Was admitted for that. Reports severe penicillin allergy and mild to moderate Bactrim allergy. Given some Tylenol here initially and fluid hydration. Blood cultures and lactate were sent in addition basic laboratory studies. Chest x-ray and x-ray left lower extremity was completed. Concern for cellulitis here. Lower suspicion this represents DVT. Doubt necrotizing fasciitis and a soft compartments without crepitus. Basic labs show no evidence of any significant renal dysfunction or evidence of hepatitis or pancreatitis again has benign abdomen. Does not appear meningitic. Leukocytosis consistent with infection. Lactate elevated 2.37. Still tachycardic. Given her allergies, given initial dose of clindamycin. With concerns for sepsis and rapid expansion given vancomycin and additional LR. Discussed with the patient and will recommend admission overnight for monitor improvement. Hospitalist contacted. Impression & Plan Sepsis, Left leg cellulitis Discharge Plan Visit Data *Final* Discharge Date/Time: 04/16/19 19:59 Chief Complaint: Infection Stated Complaint: CELLULITIS IN LOWER L LEG, FEVER, HTN, VOMITING ED Provider: Josiah Martino Discharge Problem: Sepsis, Left leg cellulitis Patient Disposition: Admitted As Inpatient Discharge Instructions Interventions: ED Discharge Assessment Last Done: 04/16/19 19:59 Discharge Problem: Sepsis Qualifiers: Sepsis type: sepsis due to unspecified organism Sepsis acute organ dysfunction status: unspecified Qualified Code(s): A41.9 - Sepsis, unspecified organism The scribe's documentation has been prepared under my direction and personally reviewed by me in its entirety. I confirm that the note above accurately reflects all work, treatment, procedures, and medical decision making performed by me.
[2019-04-16 20:50] LABS: D Dimer 410 ug/L FEU (0-500)
--- NOTE | 2019-04-16 20:52 | Pharmacy Report ---
Pharmacy Abx Initial Consult - Date of Service April 16, 2019 - Pharmacy Dosing Scope Date of Consult: 04/16/19 Consultation requested by: Dr. Jeanmarie Caldwell Pharmacy is consulted to initiate Vancomycin IV dosing therapy, order appropriate labs and adjust drug dose/frequency. - Subjective The patient is a 39 year old F admitted on 04/16/19 19:42. - Objective Height: 5 ft 5 in Weight: 141.9 kg Vital Signs (Past 12hrs): Vital Signs Temp Pulse Pulse Resp BP BP Pulse Ox 04/16/19 19:52 37.2 C 115 H 20 130/65 98 04/16/19 19:07 92 04/16/19 19:03 129 H 20 156/78 H 92 04/16/19 18:15 38.4 C H 137 H 20 164/81 H 94 Lab Results (24hrs): Laboratory Tests (24 Hours) 04/16/19 04/16/19 18:41 18:41 WBC 14.50 H Neut # (Auto) 13.17 H Creatinine 0.88 Est Cr Clr Drug Dosing 125.7 Micro Results: 04/16/19 18:43 Aerobic Blood Culture - Pending Blood Anaerobic Blood Culture - Pending 04/16/19 18:41 Aerobic Blood Culture - Pending Blood Anaerobic Blood Culture - Pending - Risk Factors for Resistance * N/A - Assessment & Plan Assessment 39 year old F initiated on clindamycin + vanco for SST (cellulitis of left leg) Renal function WNL Pt with morbid obesity- at high risk of vancomycin accumulation once at steady state Plan Vancomycin IV * Estimated PK Parameters: Vd 0.55 L/kg, Saul 0.07 hr-1, t1/2 9.9 hr * Loading dose: 2,750 mg (20 mg/kg) * Maintenance dose: 1,750 mg IV (12 mg/kg) every 12 hours * Goal trough level for SST : 10-15 mcg/mL * Trough level ordered for 04/18/19 @ 1830 (prior to 4th maintenance dose) * Will not change dose if If trough level is at least 10mcg/ml-12 mcg/ml bc accumulation is likely to occur once steady state is reached. Pharmacy will continue to follow and will adjust dose/frequency as necessary. Thank you.
[2019-04-16] MEDS ORDERED: IBUPROFEN 600 MG TAB PO PRN (21:50)
[2019-04-16] MEDS: LACTATED RINGER'S 1,000 ML IV SCH (22:17)
[2019-04-17] MEDS: CLINDAMYCIN 900 MG in DEXTROSE 5% 50 ML IV SCH ×2 (00:27→10:08)
[2019-04-17] MEDS: ACETAMINOPHEN 325 MG TAB PO PRN ×2 (00:33→19:28)
[2019-04-17] MEDS: LACTATED RINGER'S 1,000 ML IV SCH (04:28)
[2019-04-17 06:26] LABS: Basophils # (auto) 0.01 K/uL (0-0.2); Basophils % (auto) 0.1 %; Hematocrit (blood only) 33.9 % (37-47); Hemoglobin 10.9 g/dL (12.0-16.0); Immature Granulocytes # (auto) 0.02 K/uL (0.00-0.02); Immature Granulocytes % (auto) 0.2 %; Mean Corpuscular Hgb Conc 32.2 g/dL (32-36); Mean Corpuscular Volume 83.9 fL (80-100); Mean Platelet Volume 9.9 fL (7.4-10.4); Monocytes # (auto) 0.39 K/uL (0.11-0.59); Monocytes % (auto) 3.3 %; Neutrophils # (auto) 10.54 K/uL (1.4-6.5); Neutrophils % (auto) 90.4 %; Platelet Count 185 K/uL (130-400); RDW Coefficient of Variation 15.1 % (11.5-14.5); RDW Standard Deviation 46.4 fL (36.4-46.3); Red Blood Count 4.04 M/uL (4.2-5.4); White Blood Count 11.66 K/uL (4.8-10.8)
[2019-04-17 06:59] LABS: BUN Creatinine Ratio 11.1 (10-20); Calcium 8.3 mg/dl (8.5-10.1); Creatinine Clr Calc Pharmacy 134.5 ml/min; Est GFR (African American) 104.4; Est GFR (Non-African American) 90.1; Potassium 3.9 mmol/L (3.5-5.1)
[2019-04-17] MEDS ORDERED: VANCOMYCIN HCL 1,750 MG in SODIUM CHLORIDE 0.9% 500 ML IV SCH (07:00)
[2019-04-17] MEDS: METFORMIN HCL 500 MG TAB PO SCH (08:24)
[2019-04-17] MEDS ORDERED: SACCHAROMYCES BOULARDII 250 MG CAP PO SCH (09:00)
--- NOTE | 2019-04-17 09:08 | Ultrasound Report ---
US venous doppler LE LT HISTORY: 39 years-old Female edema/redness/warmth acute pain and swelling of the left lower extremit y COMPARISON: Left tibia and fibula radiographs 04/16/2019 TECHNIQUE: Multiple real-time sonographic images of the left lower extremity deep venous structures w ere obtained assessing grayscale appearance and color flow FINDINGS: Normal flow, compressibility, phasicity and augmentation of the left lower extremity deep venous stru ctures. Nonspecific mildly enlarged left inguinal lymph node, 2.1 x 1.1 x 2.8 cm. Calf vessels are iverson boptimally visualized secondary to body habitus. IMPRESSION: No sonographic evidence of deep venous thrombosis. The above report was generated using voice recognition software. It may contain grammatical, syntax o r spelling errors. Electronically signed by: Solomon Rubi M.D. 04/17/2019 9:07 AM
--- NOTE | 2019-04-17 18:13 | Family Medicine Progress Note ---
Date of Service April 17, 2019 Assessment & Plan (1) Sepsis: Anjelica Tafoya's 39-year-old woman with left lower limb cellulitis Cellulitis Patient with 1 day history of noted redness and swelling of left anterior distal leg Shortly after patient noticed rash, she noticed that she was having fevers chills nausea vomiting and awaited to urgent care On admission to the hospital, patient met 3-4 Sirs criteria was started on vancomycin and clindamycin for antitoxin effect Patient clinically improved, rash appears same size or slightly larger though intensity of symptoms rash and tenderness have greatly decreased Patient with 2 previous hospital admissions for cellulitis, first coming in seventh grade after spider bite, second, and 7 to 10 years ago unknown cause, and this most recent admission also has no clear integumentary breakdown the patient does suffer from morbid obesity and chronic venous stasis Transition from IV vancomycin and clindamycin to oral doxycycline We will continue to monitor, vital signs currently stable Type 2 diabetes Continue home metformin F/C/N: Regular diet discontinue IV fluids DVT prophylaxis: SCDs Disposition: We will transfer to [facility] (2) Tachycardia: (3) Elevated blood pressure reading without diagnosis of hypertension: (4) Cellulitis: (5) Left leg cellulitis: (6) DM II (diabetes mellitus, type II), controlled: Supervising Physician Co-Signing Physician Notes I personally examined the patient and verified all suero points of history and exam, discussed case, and agree with decision making with Dr Hernandez. Feeling better, much less pain. She does note that the redness has tracked a little bit above the line drawn last night. No fevers chills or sweats. Vitals noted, in general she is awake and alert pleasant no distress. HEENT normocephalic atraumatic mucous membranes moist. Breathing unlabored no accessory muscle use good effort. Left lower extremity shows a diffuse area of erythema on the anterior ivey, it is nontender and may be only mildly warm, it does extend a few centimeters proximal to the line drawn last night, but this is nontender to even deep palpation. None of the area has any crepitus. There are no open lesions. There are 2 small blister areas less than half a centimeter on her distal ivey, these are not open. Lower extremity cellulitis with sepsis present on admissionappears to be improving. Continue vancomycin for resistant gram-positive coverage, given no evolution into a true necrotizing fasciitis picture antitoxin effect from clindamycin likely no longer needed. Redness has extended somewhat proximally, but she has only been on antibiotics for less than 24 hours, and her temperature, white count, redness, and pain have all improved making this quite reassuring. Continue current care for now. Jordon Joe resting comfortably this morning, has had no further symptoms since starting antibiotics yesterday. Her fevers chills nausea and vomiting have all resolved. She believes her rash has turned a much group marketing vp shade of pink from the deep breath it was yesterday and her tenderness is markedly decreased. Review of Systems Review of Systems: All systems reviewed & are unremarkable except as noted in HPI & below Physical Exam Physical Exam: Constitutional: Well-appearing 39-year-old female appears stated age in no apparent distress Eyes: Anicteric sclerae extraocular muscle movements intact bilaterally ENMT: No abnormalities detected Neck: Supple no masses no enlarged lymph nodes detected Respiratory: Chest expansion symmetric lung sounds vesicular in all lung kaur Cardiovascular: Heart sounds dual no murmurs rubs skips or gallops, lower limb edema left greater than right GI: Abdomen soft nontender, no hepatomegaly no masses detected Integumentary: Red hot swollen tender area overlying left anterior tibia. Around lunchtime today appears to be much group marketing vp but spread just beyond marker from yesterday Results & Data Vital Signs (Past 12 Hours) Vital Signs Temp Pulse Pulse Resp BP BP Pulse Ox 04/17/19 15:59 37.6 C H 97 H 19 154/83 H 92 04/17/19 15:45 103 H 04/17/19 11:00 36.7 C 85 16 139/84 96 04/17/19 07:37 36.7 C 95 H 16 145/75 H 91 04/17/19 07:15 88 PG Care Time/CCT Total # of Minutes Spent Total Time Spent with Patient: Total time spent is greater than 50% in coordination of care (as documented) at patient's floor/unit and/or counseling patient: Resident Activity Tracking Resident Involvement: Resident Care Provided Care Provided: Adult [facility] Medicine (1) Sepsis Sepsis acute organ dysfunction status: unspecified Sepsis type: sepsis due to unspecified organism Qualified Code(s): A41.9 - Sepsis, unspecified organism
[2019-04-17] MEDS: DOXYCYCLINE HYCLATE 100 MG CAP PO SCH (20:58)
[2019-04-17] MEDS ORDERED: LEVOFLOXACIN/D5W 750 MG/150 ML BAG IV SCH (22:00)
[2019-04-17 23:44] VITALS: PULSE 86
[2019-04-18 07:09] LABS: Basophils # (auto) 0.01 K/uL (0-0.2); Basophils % (auto) 0.1 %; Eosinophils # (auto) 0.07 K/uL (0-0.5); Hematocrit (blood only) 32.6 % (37-47); Hemoglobin 10.7 g/dL (12.0-16.0); Immature Granulocytes # (auto) 0.04 K/uL (0.00-0.02); Immature Granulocytes % (auto) 0.6 %; Lymphocytes # (auto) 1.51 K/uL (1.2-3.4); Lymphocytes % (auto) 21.7 %; Mean Corpuscular Hgb Conc 32.8 g/dL (32-36); Mean Corpuscular Volume 82.1 fL (80-100); Mean Platelet Volume 9.3 fL (7.4-10.4); Monocytes # (auto) 0.29 K/uL (0.11-0.59); Monocytes % (auto) 4.2 %; Neutrophils # (auto) 5.03 K/uL (1.4-6.5); Neutrophils % (auto) 72.4 %; Platelet Count 186 K/uL (130-400); RDW Coefficient of Variation 15.3 % (11.5-14.5); RDW Standard Deviation 46.2 fL (36.4-46.3); Red Blood Count 3.97 M/uL (4.2-5.4); White Blood Count 6.95 K/uL (4.8-10.8)
[2019-04-18] MEDS ORDERED: VANCOMYCIN TROUGH ONE ×2 (07:30→18:30)
[2019-04-18 07:41] VITALS: TEMP 98.8; O2SAT 96
[2019-04-18] MEDS: METFORMIN HCL 500 MG TAB PO SCH (08:25)
[2019-04-18] MEDS: DOXYCYCLINE HYCLATE 100 MG CAP PO SCH (08:26)
[2019-04-18] MEDS: LACTOBACILLUS ACIDOPHILUS (FLORANEX) TAB PO SCH ×2 (08:29→11:32)
[2019-04-18 13:15] VITALS: BP 154/83
--- NOTE | 2019-04-18 19:05 | Discharge Summary ---
Date of Service April 18, 2019 Admission HPI Per Admitting Provider Anjelica Tafoya is a 39-year-old male with no significant past medical or surgical history presenting with acute edema, redness, pain in her left lower extremity. Also with fevers, chills and malaise. Nausea and nonbloody/nonbilious vomiting. Symptoms began today at 1400. She was seen at [facility] prior to the ER and was sent here. She denies trauma to the area. Has had cellulitis of the left lower extremity in the past, most recently in 2013, unprovoked. No history of DVT or PE. 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 No recent travel. On arrival she is found to be febrile at 38.9. Regular tachycardia 129 bpm. Blood pressure elevated at 156/78. She comments that her blood pressure was over 200 at [facility]. Blood pressure has always been within the normal range during visits with her PCP. Respiratory rate of 20 saturating 92% on room air, 96% on 2 L. She comments that at [facility] her respiratory rate was as low as 89% on room air. Presently her pain is well controlled. Chills have resolved. No additional complaints at this time. Specifically, no chest pain, palpitations, shortness of breath, cough, wheeze, pleuritic pain. No abdominal pain, diarrhea, constipation. ER course: Acetaminophen 1000 mg p.o., clindamycin 900 mg IV, vancomycin 2750 mg IV, LR x1 L, normal saline x1 L Principal Diagnosis cellulitis, sepsis Discharge Exam In general she is awake and alert pleasant no distress. HEENT normocephalic atraumatic mucous membranes moist. Breathing unlabored no accessory muscle use good effort. Skin shows left lower extremity resolving erythema, no tenderness no crepitus, the small area of blistering fairly distal is deflating and improving. Her tracking erythema is nearly gone, the area is nontender it is not hot. Overall improved dramatically. Discharge Data Allergies Allergy/AdvReac Type Severity Reaction Status Date / Time Penicillins Allergy Severe THROAT Verified 04/16/19 18:45 SWELLS sulfamethoxazole Allergy Intermediate hives Verified 04/16/19 18:45 trimethoprim Allergy Intermediate hives Verified 04/16/19 18:45 Bactrim Allergy Unknown hives Verified 10/15/17 13:17 Consultations 04/16/19 19:28 ED Decision to Admit Stat Ordered Studies 04/17/19 07:00 US venous doppler LE LT Routine Hospital Course (1) Sepsis: (2) Tachycardia: Related to cellulitis. Improved. See below otherwise. (3) Elevated blood pressure reading without diagnosis of hypertension: We discussed ambulatory monitoring. Given that she has no prior history of hypertension and her pressures have improved somewhat, she may have entirely stress-induced elevation of blood pressure, versus a degree of baseline undiagnosed hypertension. We discussed follow-up in this regard. (4) Cellulitis: (5) Left leg cellulitis: Required initiation of IV antibiotics because of the large area of infection and the fact that she was septic. Initially was treated with vancomycin and clindamycin with concern on toxin mediated staph infection. Initially she improved, then she worsened again oddly, with initiation of gram- negative coverage she improved again nicely and now appears to be stable to go home. More than likely she had a polymicrobial infection that was initially predominantly gram-positive which responded to the first line of treatment, but allowed "free reign" for overgrowth of the gram-negative's which improved when she was on Levaquin. Discharge home on Levaquin and doxycycline to complete a week of therapy, close follow-up with PCP to ensure improvement. Discussed risks/benefits/side effects to both the Levaquin and doxy. Recommended no heavy lifting, outstretched lifting etc. for at least a month on the Levaquin. (6) DM II (diabetes mellitus, type II), controlled: Total Time Total Time Spent Total Time Spent (In Minutes): <30 Discharge Plan Discharge Items Patient Disposition: Home - Self-Care Reason For Visit: CELLULITIS Discharge Diagnosis: LLL Cellulitis Activity: Resume your previous activity Non-emergency contact: Primary Care Provider Call non-emergency contact if: you have any medication questions, your symptoms worsen, you have a fever, your temperature is above 101 and your wound has increased redness Follow-up/Referrals: Ana Nunez PA-C [Primary Care Provider] - 04/21/19 12:50 pm (Please, follow up at [facility] with JOSE D Nunez's associate, Dr. Matthieu Shields, on WednesdayApril 21 at 12:50 pm. Unfortunately, there were no available appointments at the [facility]. THE APPOINTMENT WILL BE IN [address] [facility]EXT TO THIS [facility]. If you need to change this appointment, call the office at [phone].) Diet: Carb Consistent or DM2 Addtl Attending Provider Instructions: Ms. Tafoya, It was our pleasure to take care of you here at [facility] for your cellulitis of your left lower leg. Now that we have added the second antibiotic levaquin we feel that you are doing much better and you are safe for discharge home. I strongly recommend following up with your primary care physician about a week from now to determine whether or not you need to continue antibiotics and to make sure the rash itself isn't continuing to spread. We will be sending you home on two different antibiotics the first is doxycycline, this medication can cause sun sensitivity but otherwise is generally well tolerated and unrelated to the medications that you have allergies for The second antibiotic is levofloxacin, this medication can, very rarely, cause tendon injury. For the next month or so it might behoove you to try not to do too much heavy lifting, and if you feel like you may have injured yourself we would recommend being seen by a physician. Otherwise your regular lifestyle can be continued and we believe you will recover quickly and completely. You may also continue to take your home probiotic while on your antibiotics. Thank you, Sincerely, Benito Hernandez MD Pending Studies at Discharge: No Stand-Alone Forms: My [facility], Smoking Cessation Medications and DC Order Prescriptions: New doxycycline hyclate 100 mg Capsule 100 mg PO BID 7 Days Qty: 14 RF: 0 levofloxacin 750 mg tablet 750 mg PO DAILY 7 Days Qty: 7 RF: 0 Continued metformin 500 mg Tablet 500 mg PO QAM RF: 0 ibuprofen [Advil] 200 mg Tablet 400 - 600 mg PO DIRECTED PRN (Reason: Pain) RF: 0 Discharge Orders: Discharge Order (Routine); Ordered 04/18/19 Ordered By: Benito Fischer/Other Patient Handouts: Diabetes Healthy Meals, Diabetes Eating Out, Diabetes Shopping Preparing Meals, Diabetes Exercise Benefits, Diabetes Learn Serve Portion Size Admission Data Admit Date/Time: 04/16/19 19:42 Attending Provider: Kp Alvarez Admit Provider: Mikaela Caldwell Primary Care Provider: Ana Nunez Other Providers: Mikaela Caldwell Other Interventions: Discharge Summary Assessment (RN) Last Done: 04/18/19 13:14 DC Date/Time DO NOT enter until pt leaves facility: 04/18/19 13:57
== END 2019-04-18 13:57 | disposition home or self-care (01) ==
LOC: ED 18:10 → 2N 18:10 → SUATTDRO 19:42 → 2N 19:59